=== PATIENT | female | born 1985 | race American Indian/Alaskan Native ===

== ENCOUNTER 2016-10-18 01:54 | Emergency (ER) | payer OTHER, MEDICAID ==
[2016-10-18 03:36] VITALS: BP 118/84
[2016-10-18] MEDS ORDERED: TYLENOL PO ONE (03:42)
[2016-10-18] MEDS ORDERED: TYLENOL ONE (03:44)
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
== END 2016-10-18 09:46 | disposition home or self-care (01) ==
LOC: ED 01:54
DX: S13.4XXA Sprain of ligaments of cervical spine, initial encounter (principal); S39.012A Strain of muscle, fascia and tendon of lower back, initial encounter; F17.200 Nicotine dependence, unspecified, uncomplicated; V49.49XA Driver injured in collision with other motor vehicles in traffic accident, initial encounter; Y93.9 Activity, unspecified; Y92.9 Unspecified place or not applicable; Y99.9 Unspecified external cause status
CPT/HCPCS: 76801; 76817